=== PATIENT | female | born 1990 | race Caucasian/White ===

== ENCOUNTER 2017-09-29 10:22 | Outpatient (CLI) | END 2017-09-29 12:20 | disposition home or self-care (01) ==

== ENCOUNTER 2017-10-02 09:01 | Outpatient (CLI) | END 2017-10-02 10:45 | disposition home or self-care (01) ==

== ENCOUNTER 2017-10-04 13:05 | Outpatient (CLI) | END 2017-10-04 14:40 | disposition home or self-care (01) ==

== ENCOUNTER 2017-10-09 08:42 | Outpatient (CLI) | END 2017-10-09 10:50 | disposition home or self-care (01) ==

== ENCOUNTER 2017-11-12 09:27 | Inpatient (IN) | END 2017-11-15 20:35 | disposition home or self-care (01) | DRG 766 ==